=== PATIENT | male | born 1965 | race Caucasian/White ===

== ENCOUNTER 2018-11-28 12:01 | Emergency (ER) | payer BC, OTHER ==
[~2018-11-28] VITALS: Ht 170.2 cm; Wt 86.2 kg
[2018-11-28 12:02] VITALS: BP 126/79
[2018-11-28] MEDS ORDERED: SYNTHROID150 MCG PO (12:16)
== END 2018-11-28 13:35 | disposition home or self-care (01) ==
LOC: ER 12:01
DX: E03.9 Hypothyroidism, unspecified (principal); F17.210 Nicotine dependence, cigarettes, uncomplicated

== ENCOUNTER 2020-08-22 09:14 | Emergency (ER) | payer OTHER ==
[~2020-08-22] VITALS: Ht 170.2 cm; Wt 89.4 kg
[~2020-08-22 09:14] MED LIST: SYNTHROID150 MCG PO
[2020-08-22 10:10] VITALS: BP 142/72
[2020-08-22] MEDS ORDERED: BACTRIM DS TAB1 EACH PO (10:17)
== END 2020-08-22 10:32 | disposition home or self-care (01) ==
LOC: ER 09:14
DX: L03.011 Cellulitis of right finger (principal); F17.210 Nicotine dependence, cigarettes, uncomplicated; Z79.899 Other long term (current) drug therapy

== ENCOUNTER 2021-09-22 16:49 | Emergency (ER) | payer OTHER ==
[~2021-09-22] VITALS: Ht 172.7 cm; Wt 79.4 kg
[~2021-09-22 16:49] MED LIST changes: +BACTRIM DS TAB1 EACH PO
[2021-09-22 17:47] VITALS: BP 141/87
[2021-09-22] MEDS ORDERED: BACTRIM DS TAB1 EAC1 PO (18:31)
== END 2021-09-22 19:21 | disposition home or self-care (01) ==
LOC: ER 16:49
DX: S90.31XA Contusion of right foot, initial encounter (principal); E03.9 Hypothyroidism, unspecified; F17.210 Nicotine dependence, cigarettes, uncomplicated; Z79.899 Other long term (current) drug therapy; W23.0XXA Caught, crushed, jammed, or pinched between moving objects, initial encounter; Y93.89 Activity, other specified; Y92.096 Garden or yard of other non-institutional residence as the place of occurrence of the external cause; Y99.9 Unspecified external cause status